=== PATIENT | male | born 1940 | race Caucasian/White ===

== ENCOUNTER 2019-03-23 18:15 | Observation (INO) ==
[2019-03-23 19:12] LABS: Urine Bilirubin Negative (NEGATIVE); Urine Blood Negative /ul (NEGATIVE); Urine Ketone Negative (NEGATIVE); Urine Nitrite Negative (NEGATIVE); Urine Protein Negative (NEGATIVE); Urine Specific Gravity 1.015 SP.GR. (1.005-1.030); Urine Urobilinogen Normal (NORMAL)
[2019-03-23 19:19] LABS: Hematocrit 42.2 % (42.0-52.0); Hemoglobin 14.2 gm/dL (13.5-18.0); Mean Cell Volume 91.9 fl (78-100); Mean Corpuscular Hemoglobin 30.9 pg (27-31); Mean Corpuscular Hgb Conc 33.6 g/dl (32-36); Mean Platelet Volume 9.8 fl (8-11.3); Neutrophil # 4.8 K/mm3 (1.3-6.0); Neutrophil % 64.7 % (42-75.0); Platelet Count 187 K/mm3 (150-450); Red Blood Count 4.59 M/mm3 (4.7-6.0); White Blood Count 7.4 K/mm3 (4.0-10.5)
[2019-03-23 19:23] LABS: Urine Appearance Clear (CLEAR); Urine Bacteria 1+; Urine Color Yellow; Urine RBC None Seen /hpf (0-5)
[2019-03-23 19:33] LABS: Cocaine Ur Negative (NEGATIVE); Urine Barbiturate Negative (NEGATIVE); Urine Benzodiazepines Negative (NEGATIVE); Urine Opiates Negative (NEGATIVE); Urine PCP Negative (NEGATIVE); Urine THC Negative (NEGATIVE)
[2019-03-23 19:45] LABS: ALT 16 U/L (19-67); AST 15 U/L (0-48); Albumin * 3.7 gm/dl (3.4-5.0); Alkaline Phosphatase * 86 U/L (50-170); Anion Gap 7.1 mmol/L (6.8-13.8); BUN/Creatinine Ratio 15.7 (9.0-21.6); Bilirubin, Total 0.4 mg/dL (0.0-1.1); Blood Urea Nitrogen 19 mg/dL (6-23); Calcium * 9.1 mg/dL (7.9-10.9); Carbon Dioxide 31.9 mmol/L (24-32.6); Chloride 103 mmol/L (97-106); Glucose * 240 mg/dL (70-110); Sodium 138 mmol/L (132-142); Total Protein 7.2 gm/dL (6.2-8.2)
[2019-03-23] MEDS ORDERED: LORazepam 2 MG/ML DISP.SYRIN IV ONE (20:29)
[2019-03-23] MEDS ORDERED: cefTRIAXone SODIUM 1,000 MG/100 ML BAG IV ONE (20:33)
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
[2019-03-24 14:40] VITALS: BP 141/75
== END 2019-03-24 15:08 | disposition home health service (06) ==
LOC: ER 18:15 → MS 18:15
PROVIDERS: ADMIT Family Medicine; ATTEND Family Medicine
DX: F03.91 Unspecified dementia, unspecified severity, with behavioral disturbance; G93.40 Encephalopathy, unspecified; N39.0 Urinary tract infection, site not specified
CPT/HCPCS: 36415; 70450; 71020; 71046; 80053; 80307; 80320; 81001; 83605; 85025; 87040; 87086; 93005; 96365; 96375; 97161; 99285; G0378; G0481

== ENCOUNTER 2020-09-27 17:11 | Inpatient (IN) ==
[2020-09-27] MEDS ORDERED: MORPHINE SULFATE 2 MG/ML DISP.SYRIN IV ONE ×2 (18:03→19:49)
[2020-09-27] MEDS ORDERED: cefTRIAXone SODIUM 1,000 MG/100 ML BAG IV ONE (18:24)
[2020-09-27] MEDS ORDERED: ACETAMINOPHEN 1,000 MG/100 ML BTL IV ONE (18:24)
[2020-09-27 18:36] LABS: Hematocrit 42.1 % (42.0-52.0); Hemoglobin 13.5 gm/dL (13.5-18.0); Mean Cell Volume 90.7 fl (78-100); Mean Corpuscular Hemoglobin 29.1 pg (27-31); Mean Corpuscular Hgb Conc 32.1 g/dl (32-36); Mean Platelet Volume 9.2 fl (8-11.3); Neutrophil # 6.2 K/mm3 (1.3-6.0); Neutrophil % 70.2 % (42-75.0); Platelet Count 231 K/mm3 (150-450); Red Blood Count 4.64 M/mm3 (4.7-6.0); Red Cell Distribution Width 13.1 % (11.5-14.0); White Blood Count 8.9 K/mm3 (4.0-10.5)
--- NOTE | 2020-09-27 18:41 | ERNOTE ---
Lower Extremity HPI - Narrative Date of Service: 09/27/20 - General Lower Extremities Pain: 1st toe: left Time Seen by Provider: 09/27/20 17:57 Source: patient Exam Limitations: no limitations - Immun/Allergies/Home Medications Immunizations: IMMUNIZATION HX Immunizations Up to Date Yes History of Influenza Vaccine Yes Hx Pneumococcal Vaccination No Allergies/Adverse Reactions: Allergies Allergy/AdvReac Type Severity Reaction Status Date / Time No Known Allergies Allergy Verified 07/05/20 08:55 Home Medications: HOME MEDICATIONS Amox Tr/Potassium Clavulanate [Augmentin 875-125 Tablet] 875 mg PO Q12H #20 tab 09/22/20 [Last Taken Unknown] - History of Present Illness Narrative: Patient presents to the ED for toe pain. This is a patient that I saw on the with a red toe. He needed to get going at that time because of his dog but did stay for labs/x-ray. He is living in a hotel now in [place] (had [facility] He subsequently went to [facility] in [place] on 09/24 and 09/26. Had [place] and left AMA, not willing to be admitted. Presents with ongoing toe pain. There is now a black area on the toe but this is also noted in the records from [place]. It does not sound like he had started the ABx that I prescribed him when I saw him here on the . Occurred: other - over a week ago Location of Incident: other - no injury noted Method of Injury: Reports: no apparent injury Loss of Consciousness: Reports: no loss of consciousness Modifying Factors - (Improves): Reports: other - nothing Modifying Factors - (Worsens): Reports: other - movement, walking Associated Symptoms: Denies: unable to bear weight Other Injuries: Reports: none Subsequent Symptoms: Denies: numbness, motor loss Prior Treament: Reports: recently seen, treated by physician Review of Systems - Review of Systems Constitutional: Absent: fever Respiratory: Absent: shortness of breath Cardiology: Absent: chest pain Gastrointestinal/Abdominal: Absent: abdominal pain Musculoskeletal: Present: See HPI Skin: Present: See HPI Neurological: Absent: weakness All Other Systems: All systems neg except as marked Medical History (Last Reviewed 09/27/20 @ 18:39 by Dre Hernandez MD) 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 type 2, controlled Surgical History: Surgical History (Last Reviewed 09/27/20 @ 18:39 by Dre Hernandez MD) H/O cervical spine surgery Family History: Family History (Last Reviewed 09/27/20 @ 18:39 by Dre Hernandez MD) Mother Father Social History: (Last Reviewed 09/27/20 @ 18:39 by Dre Hernandez MD) Social History: usp: No Highest level of school completed/degree received: high school graduate Service: No Tobacco: Smoking Status: Former smoker Alcohol: alcohol intake: never Substance Use: substance use type: does not use Dietary Habits: caffeine: Yes Physical Exam - Physical Exam General Appearance: Present: alert, no apparent distress Head Exam: Present: normal inspection, no evidence of injury Eye Exam: Normal inspection: bilateral, PERRL: bilateral Ears, Nose, Throat: Present: normal ENT inspection Neck: Present: normal inspection Respiratory: Present: no respiratory distress, normal breath sounds, no accessory muscle use, lungs clear Cardiovascular/Chest: Present: regular rate, rhythm, normal peripheral pulses Gastrointestinal/Abdominal: Present: nontender Back Exam: Present: normal range of motion Extremity Exam: Present: other - There is redness left great toe with necrotic area. The redness extends on the the foot. No subQ air noted. No clear evidence of nec fasc but necrotic area on toe noted. Neurological Exam: Present: alert, no motor/sensory deficits Skin Exam: Present: normal color, warm/dry, other - see extremity exam. Necrotic/black area on toe. Progress - Results and Orders Patient's Lab Results:: I have reviewed the patient's lab results. - Vital Signs Patient's Vital Signs:: I have reviewed the patient's vital signs. Vital Signs: Vital Signs 09/27/20 17:15 Temperature 36.8 C Pulse Rate 98 Respiratory Rate 18 Blood Pressure 144/114 H O2 Sat by Pulse Oximetry 99 - Progress/Reassessment Chief Complaint: Foot Injury/Pain Progress Note-Subjective: 09/27/20 18:53 I had spoken to Jorje Dhillon, plan was to admit the patient for medical eval and O rthopedics eval. When I discussed this with the patient he was not agreeable to that plan. Just like at [facility] he refused admission due to his dog and no one to care for it. he clearly understands risks of /disability but will not be admitted. I spent over 30 minutes with the patient trying to talk him into being admitted or find alternative options, he was not agreeable to this. He refuses my help and will sign out AMA, I cannot change his mind. I will try to get him in to see Ortho this week and hopefully he can find alternative arrangements for his dog so he can get the necessary and recommended treatment. 09/27/20 19:10 Patient thought he could find someone to watch his dog so he could be admitted but he would need to leave to do that. He understands that he is leaving AMA. 09/27/20 19:29 Nursing was kind enough to find a place for dog to be cared for. Ortho Jan's with images of toe, recommend admission. D/W Dr Vaughn who will admit the patient. Patient now agreeable. Departure Clinical Impression: Cellulitis, Failure of outpatient treatment, Necrosis of toe, Diabetes - Departure Disposition: Still a patient Condition: Fair Additional Instructions: You are leaving against medical advice. Please reconsider, you risk and /or disability. See Orthopedics this week, call Tuesday for an appointment time. Return if you change your mind about admission or if your condition worsens or changes in any way. Continue your antibiotics. Referrals: Jorje Dhillon, PAC [[facility]] -
[2020-09-27] MEDS ORDERED: NORMAL SALINE 1,000 ML IV ONE (18:42)
[2020-09-27 18:55] LABS: Anion Gap 13.9 mmol/L (6.8-13.8); Calcium * 8.4 mg/dL (7.9-10.9); Carbon Dioxide 25.1 mmol/L (24-32.6); Estimated Creat Clear 43.3
[2020-09-27 18:57] LABS: CRP 17.8 mg/dL (0.0-0.9)
[2020-09-27 19:58] LABS: Hemoglobin A1C 13.6 % (3.80-5.60)
--- NOTE | 2020-09-27 22:08 | HP ---
Chief Complaint - Chief Complaint Date of Service: 09/27/20 Time of Service: 22:07 Chief Complaint: diabetic ulcer, uncontrolled diabetes, concern for osteomyelitis History of Present Illness: 79-year-old male with history of uncontrolled type 2 diabetes presented to the ER for the third time in roughly a week for left toe pain and underlying cellulitis. Patient seen both here at [facility] previously as well as [place] for the same issue. Patient was prescribed antibiotics for a cellulitis infection but did not pick them up. Patient has little care for his overall health though is very pleasant to speak with. According to the ER doctor who previously saw him, his cellulitic infection is worse and he also developed what could be a black eschar/necrotic tissue over the lateral aspect of his left great toe. This is a previously. His white count in the ER was unremarkable but he did have an elevated ESR at 97 which is concerning for osteomyelitis. Patient was given a dose of Rocephin. He had an elevated hemoglobin A1c at 13.6 with a glucose of 411 in the ER. His lactic acid was normal. His CRP was elevated at 17.8. No repeat x-rays ordered at this time as he had one done 5 days previously which showed soft tissue swelling of the great toe without acute osseous abnormality. He was admitted to the floor for IV antibiotics and Ortho consult. On examination his toe does not look necrotic as there is minimal tissue breakdown but there is definitely tissue change. It could be an eschar or could be an underlying large hematoma. Again he is are concerning for osteomyelitis though and so patient will need an MRI on Tuesday. Stop the Rocephin and started him on vancomycin and Zosyn. No blood cultures were drawn in the ER but patient does not have any systemic signs of infection. His vital signs been stable and has been afebrile. Patient will be treated as he was able to find a Medicare for his dog while he is here. 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 type 2, controlled Surgical History: Surgical History (Last Reviewed 09/27/20 @ 21:58 by Nichelle Andino RN) H/O cervical spine surgery Family History: Family History (Last Reviewed 09/27/20 @ 21:58 by Nichelle Andino RN) Mother Father Social History: (Last Updated 09/27/20 @ 21:59 by Nichelle Andino RN) Social History: adopted: No foster care: No group home: No Marital status: / lives independently: Yes current occupational status: retired Highest level of school completed/degree received: high school graduate Sexually Active: No Service: No Tobacco: Smoking Status: Former smoker Alcohol: alcohol intake: former Substance Use: substance use type: does not use Dietary Habits: caffeine: Yes Review Of Systems (GEN) - Review of Systems Generalized/Overall Review: Absent: Weakness, Chills EENTM: Present: No Symptoms Reported Respiratory: Present: No Symptoms Reported Cardiac: Present: No Symptoms Reported Abdominal: Present: No Symptoms Reported Genitourinary: Present: Polyuria. Absent: Burning, Itching Musculoskeletal: Present: Other - Left great toe pain Neurological: Present: No Symptoms Reported Skin: Present: No Symptoms Reported Endocrine: Present: Increased Thirst Immunizations: IMMUNIZATION HX Immunizations Up to Date Yes History of Influenza Vaccine Yes Hx Pneumococcal Vaccination No Allergies/Adverse Reactions: Allergies Allergy/AdvReac Type Severity Reaction Status Date / Time No Known Allergies Allergy Verified 07/05/20 08:55 Home Medications: HOME MEDICATIONS Amox Tr/Potassium Clavulanate [Augmentin 875-125 Tablet] 875 mg PO Q12H #20 tab 09/22/20 [Last Taken Unknown] Exam - Exam Vital Signs: Vital Signs - Last Taken Temp 35.8 C L 09/27/20 21:34 Pulse 91 09/27/20 21:34 Resp 20 09/27/20 21:34 BP 135/75 09/27/20 21:34 Pulse Ox 97 09/27/20 21:34 Constitutional: Present: Alert, Oriented x3, Cooperative, Acute distress - Left great toe pain with underlying cellulitic infection, Elderly ENT Exam: Present: hearing grossly normal Eye Exam: bilateral eye: normal inspection, EOMI Neck: Present: non-tender, supple Respiratory: Present: lungs clear, normal breath sounds Cardiovascular/Chest: Present: regular rate, rhythm, no murmur Abdomen: Present: soft, nontender, nondistended Extremity: Present: other - Left great toe tissue change (eschar worse hematoma) with surrounding cellulitis tracking up both plantar and dorsal aspect of foot just below his ankle. Area is warm to touch Neurologic: Present: alert, normal mood/affect, oriented x 3 Appearance: Present: disheveled, impaired insight Eye contact: Present: cooperative, good eye contact, other - Very pleasant this evening Thoughts: Present: normal thought pattern, normal mood /affect Diagnostic Studies: Abnormal Lab Results 09/27/20 09/27/20 09/27/20 Range/Units 18:25 18:25 18:26 RBC 4.64 L (4.7-6.0) M/mm3 Immature Gran % (Auto) 0.60 H (0.001-0.429) % Immature Gran # (Auto) 0.05 H (0.000-0.0310) K/mm3 Lymphocytes % 18.9 L (20-51) % Monocytes % 9.1 H (0.0-9) % Neutrophils # 6.2 H (1.3-6.0) K/mm3 ESR 97 H (0-10) mm/hr Anion Gap (6.8-13.8) mmol/L Est GFR (Non-Af Amer) (60-130) mL/min Random Glucose (70-110) mg/dL Hemoglobin A1c 13.6 H (3.80-5.60) % C-Reactive Prot, Quant (0.0-0.9) mg/dL 09/27/20 Range/Units 18:26 RBC (4.7-6.0) M/mm3 Immature Gran % (Auto) (0.001-0.429) % Immature Gran # (Auto) (0.000-0.0310) K/mm3 Lymphocytes % (20-51) % Monocytes % (0.0-9) % Neutrophils # (1.3-6.0) K/mm3 ESR (0-10) mm/hr Anion Gap 13.9 H (6.8-13.8) mmol/L Est GFR (Non-Af Amer) 53 L (60-130) mL/min Random Glucose 411 H (70-110) mg/dL Hemoglobin A1c (3.80-5.60) % C-Reactive Prot, Quant 17.8 H (0.0-0.9) mg/dL Laboratory Results WBC 8.9 K/mm3 (4.0-10.5) 09/27/20 18:26 RBC 4.64 M/mm3 (4.7-6.0) L 09/27/20 18:26 Hgb 13.5 gm/dL (13.5-18.0) 09/27/20 18: Hct 42.1 % (42.0-52.0) 09/27/20 18: MCV 90.7 fl (78-100) 09/27/20 18: MCH 29.1 pg (27-31) 09/27/20 18: MCHC 32.1 g/dl (32-36) 09/27/20 18: RDW 13.1 % (11.5-14.0) 09/27/20 18: Plt Count 231 K/mm3 (150-450) 09/27/20 18: MPV 9.2 fl (8-11.3) 09/27/20 18: Immature Gran % (Auto) 0.60 % (0.001-0.429) H 09/27/20 18: Immature Gran # (Auto) 0.05 K/mm3 (0.000-0.0310) H 09/27/20 18: Neutrophils % 70.2 % (42-75.0) 09/27/20 18: Lymphocytes % 18.9 % (20-51) L 09/27/20 18: Monocytes % 9.1 % (0.0-9) H 09/27/20 18: Eosinophils % 0.9 % (0.0-3.0) 09/27/20 18: Basophils % 0.3 % (0.0-1.0) 09/27/20 18: Nucleated RBC % 0.0 k/mm3 (0-1) 09/27/20 18: Neutrophils # 6.2 K/mm3 (1.3-6.0) H 09/27/20 18: Lymphocytes # 1.68 k/mm3 (1.5-3.5) 09/27/20 18: Monocytes # 0.8 k/mm3 (0.0-1.0) 09/27/20 18: Eosinophils # 0.1 k/mm3 (0.0-0.7) 09/27/20 18: Absolute Basophils 0.0 k/mm3 (0.0-0.1) 09/27/20 18: ESR 97 mm/hr (0-10) H 09/27/20 18:25 Sodium 132 mmol/L (132-142) 09/27/20 18:26 Plasma Sodium 137 mmol/L (130-142) 09/27/20 18:26 Potassium 4.0 mmol/L (3.4-4.6) 09/27/20 18:26 Chloride 97 mmol/L (97-106) 09/27/20 18:26 Carbon Dioxide 25.1 mmol/L (24-32.6) 09/27/20 18:26 Anion Gap 13.9 mmol/L (6.8-13.8) H 09/27/20 18:26 BUN 18 mg/dL (6-23) 09/27/20 18:26 Creatinine 1.38 mg/dL (0.4-1.4) 09/27/20 18:26 Est GFR (Non-Af Amer) 53 mL/min (60-130) L 09/27/20 18:26 BUN/Creatinine Ratio 13.0 (9.0-21.6) 09/27/20 18:26 Random Glucose 411 mg/dL (70-110) H 09/27/20 18:26 Mean Blood Glucose 344 mg/dL 09/27/20 18:25 Hemoglobin A1c 13.6 % (3.80-5.60) H 09/27/20 18:25 Lactic Acid, Venous 1.8 mmol/L (0.4-2.0) 09/27/20 18:26 Calcium 8.4 mg/dL (7.9-10.9) 09/27/20 18:26 C-Reactive Prot, Quant 17.8 mg/dL (0.0-0.9) H 09/27/20 18:26 SARS-CoV-2 (PCR) Not detected (NotDetected) 09/27/20 19:40 Assessment/Plan - Narrative Narrative: Patient admitted for IV antibiotics. Patient will be here for a few days while we evaluate his toe. Patient would need an MRI of his left lower extremity to rule out osteomyelitis. Ortho has been consulted, will comanage with them. Patient was started on vancomycin and Zosyn. Will check Vanco trough an hour prior to fourth dose. We will need to get his diabetes under control prior to any operation if he were to have 1. We will start on a moderate sliding scale and check sugars before meals at bedtime. Consistent carbohydrate diet ordered. We will use SCDs for DVT prophylaxis as patient may need surgery. Will await for evaluation but patient will need MRI prior to any decision be made in regards to this. Patient is very pleasant but states that he is not excited about life and wanted to stand to go he wants to go. He is not suicidal by any means but is just sad and misses his who recently. We will consider antidepression medication and discussed this with him tomorrow. His vital signs are stable otherwise he is afebrile. We will work on getting fairly tight control of his diabetes. Patient is noncompliant which we discussed again this was back to him not being cellulitis and does not really want to do anything for his chronic comorbidities. This makes treating his infection difficult as he cannot stay here for full 14 days of IV antibiotics and if he were to have surgery I doubt he would have good follow-up care due to noncompliance and this likely will result in return infection and other complications. We discussed this in detail with the patient during his stay. Nurse will call questions or concerns. 1 hour time spent with patient, reviewing his records from the ER previous days, developing treatment plan, and dictating his note. - Assessment/Plan (1) Cellulitis, toe Problem: Acute (2) Necrosis of toe Problem: Suspected (3) Uncontrolled diabetes mellitus Problem: Acute
[2020-09-27] MEDS ORDERED: VANCOMYCIN HCL 1 GM in DEXTROSE 5 % IN WATER 250 ML IV SCH ×2 (22:15)
[2020-09-27] MEDS ORDERED: INSULIN LISPRO 100 UNITS/ML VIAL SC ONE (22:15)
[2020-09-27] MEDS: MORPHINE SULFATE 4 MG/ML SYRG IV PRN (22:50)
[2020-09-28] MEDS: PIPERACILLIN SODIUM/TAZOBACTAM 3.375 GM in DEXTROSE 5 % IN WATER 100 ML IV SCH ×6 (01:05→16:18)
[2020-09-28 07:40] LABS: Hematocrit 40.7 % (42.0-52.0); Mean Cell Volume 91.1 fl (78-100); Mean Corpuscular Hemoglobin 29.1 pg (27-31); Mean Corpuscular Hgb Conc 31.9 g/dl (32-36); Mean Platelet Volume 8.8 fl (8-11.3); Neutrophil % 64.2 % (42-75.0); Platelet Count 207 K/mm3 (150-450); Red Blood Count 4.47 M/mm3 (4.7-6.0); Red Cell Distribution Width 13.1 % (11.5-14.0); White Blood Count 7.8 K/mm3 (4.0-10.5)
[2020-09-28] MEDS: INSULIN LISPRO 100 UNITS/ML VIAL SC SCH ×4 (07:42→20:57)
[2020-09-28 07:57] LABS: Albumin * 2.8 gm/dl (3.4-5.0); Anion Gap 13.4 mmol/L (6.8-13.8); BUN/Creatinine Ratio 14.2 (9.0-21.6); Bilirubin, Total 0.5 mg/dL (0.0-1.1); Ca. Corrected For Albumin 8.9 mg/dL (8.4-10.2); Calcium * 8.3 mg/dL (7.9-10.9); Potassium 4.4 mmol/L (3.4-4.6); Total Protein 6.5 gm/dL (6.2-8.2)
[2020-09-28] MEDS: MORPHINE SULFATE 4 MG/ML SYRG IV PRN ×3 (08:33→19:51)
--- NOTE | 2020-09-28 11:14 | CONS ---
- Reason for consultation (1) Cellulitis, toe Date of Service: 09/28/20 HPI - General Date of Service: 09/28/20 Narrative: Mr. Hadley is an 79-year-old gentleman who was presented to emergency department a couple times over the last week. He apparently is also been in [facility]'s emergency department. He reports he has been having pain and swelling in his right foot that is progressively worsened. Dr. Hernandez had treated him as an outpatient for cellulitis. At this time he was concern for necrosis of the toe. Marcos reports he has not been compliant with his diabetes. He does like to eat a lot of sweets and drink a a lot of pop. His blood sugars have been running in the 600s apparently. He is currently living in a hotel in the [facility]. His in 2019 as well as siblings have . 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 Marcos reports to me that he just wants to but he does not want to commit suicide. He reports he has not drank alcohol in 7 years. Source: patient, other - Dr. Hernandez - History of Present Illness Timing/Duration: 1 week, getting worse Allergies/Adverse Reactions: Allergies No Known Allergies Allergy (Verified 07/05/20 08:55) Home Medications: Home Medications Medication Instructions Recorded Last Taken Amox Tr/Potassium Clavulanate 875 mg PO Q12H #20 tab 09/22/20 Unknown [Augmentin 875-125 Tablet] Medications - Medications Current Medications: Current Medications Piperacillin Sod/Tazobactam (Sod 3.375 gm/ Dextrose/Water) 100 mls @ 25 mls/hr IV Q8H [facility]; Protocol Stop: 10/27/20 22:16 Last Admin: 09/28/20 07:41 Dose: 25 mls/hr Documented by: Insulin Human Lispro (Insulin Lispro 100 Units/Ml Vial) 0 units SC [facility]; Protocol Stop: 10/28/20 07:01 Last Admin: 09/28/20 07:42 Dose: 8 units Documented by: Morphine Sulfate (Morphine Sulfate 4 Mg/Ml Syrg) 4 mg IV Q4H PRN PRN Reason: Pain Stop: 10/27/20 22:31 Last Admin: 09/28/20 08:33 Dose: 4 mg Documented by: Physical Examination - Exam Vital Signs: Vital Signs - Last Taken Temp 36.6 C 09/28/20 09:00 Pulse 91 09/28/20 09:00 Resp 18 09/28/20 09:00 BP 140/77 09/28/20 09:00 Pulse Ox 97 09/28/20 09:00 O2 Oxygen Delivery Method Room Air Comprehensive Narative: 09/28/20 11:07 Areas of pleasant 79-year-old gentleman. At this time he is in no distress. Plain film x-rays reviewed showing no obvious evidence of osteomyelitis. His left foot is warm to the touch. Posterior tibial pulse intact. He has local discomfort around the great toe with local erythema. He has a black area that appears to be a blood blister and not true necrosis. He has no open sores at this time. He reports sensation intact to light touch in his other foot. He is able to plantarflex and dorsiflex the both ankles without pain. He does not have an elevated white count. His sed rate is 97 CRP 2.8. 09/28/20 11:09 Constitutional: Present: Alert, Oriented x3, Cooperative, No distress - Results and Findings: Lab/Microbiology results last 24 hrs: Abnormal/Pending Laboratory Last 24 HRS 09/28/20 09/28/20 09/27/20 07:22 07:22 18:26 RBC 4.47 L Hgb 13.0 L Hct 40.7 L MCHC 31.9 L Immature Gran % (Auto) Immature Gran # (Auto) Lymphocytes % Monocytes % 10.4 H Neutrophils # ESR Anion Gap 13.9 H Est GFR (Non-Af Amer) 53 L Random Glucose 135 H D 411 H Hemoglobin A1c C-Reactive Prot, Quant 17.8 H Albumin 2.8 L 09/27/20 09/27/20 09/27/20 18:26 18:25 18:25 RBC 4.64 L Hgb Hct MCHC Immature Gran % (Auto) 0.60 H Immature Gran # (Auto) 0.05 H Lymphocytes % 18.9 L Monocytes % 9.1 H Neutrophils # 6.2 H ESR 97 H Anion Gap Est GFR (Non-Af Amer) Random Glucose Hemoglobin A1c 13.6 H C-Reactive Prot, Quant Albumin - Assessments/Findings (1) Cellulitis, toe Diagnosis(s): Discussed with Marcos the importance of getting his blood sugars under control. He currently is being treated for cellulitis with IV antibiotics and he does have a large blood blister on his great toe. At this time I do not see any strong indication to amputate the toe. If the toe involves tissue necrosis I discussed with him he may need to have this done. He voiced understanding. Advised in order to heal a surgical wound his blood sugars would need to be controlled. This was discussed with his admitting physician Dr. Vaughn this morning. He is going to obtain an MRI to further evaluate for potential osteomyelitis. Problem: Acute (2) Uncontrolled diabetes mellitus Problem: Acute
[2020-09-28] MEDS: VANCOMYCIN/WATER FOR INJ (PEG) 1.75 GM/350 ML BAG IV SCH (11:31)
--- NOTE | 2020-09-28 14:20 | PN ---
Subjective - Date and Time Seen Date: 09/28/20 Time: 11:00 Subjective Narrative: He feels well, already shortness regression of the cellulitis in his left foot. Agree with Jorje from Ortho as this may be just a blood blister on his toe as there are no tissue changes with the blackness. Due to elevated ESR though, plan for MRI tomorrow. Blood sugars much better controlled and his vital signs are stable. He is tolerating his antibiotic treatment well. Objective - Review of Systems Generalized/Overall Review: Reports: No Symptoms Reported EENTM: Reports: No Symptoms Reported Respiratory: Reports: No Symptoms Reported Cardiac: Reports: No Symptoms Reported Abdominal: Reports: No Symptoms Reported Genitourinary Symptoms: Reports: No Symptoms Reported Musculoskeletal Complaints: Reports: Other - Left toe pain Neurological: Reports: No Symptoms Reported Skin: Reports: No Symptoms Reported Endocrine: Reports: No Symptoms Reported - Vitals Vitals: Last Vital Signs Temp 37.2 C 09/28/20 11:00 Pulse 90 09/28/20 11:00 Resp 18 09/28/20 11:00 BP 109/59 09/28/20 11:00 Pulse Ox 95 09/28/20 11:00 - Abnormal Lab Findings Abnormal Lab Findings: Abnormal Lab Results 09/27/20 09/27/20 09/27/20 Range/Units 18:25 18:25 18:26 RBC 4.64 L (4.7-6.0) M/mm3 Hgb (13.5-18.0) gm/dL Hct (42.0-52.0) % MCHC (32-36) g/dl Immature Gran % (Auto) 0.60 H (0.001-0.429) % Immature Gran # (Auto) 0.05 H (0.000-0.0310) K/mm3 Lymphocytes % 18.9 L (20-51) % Monocytes % 9.1 H (0.0-9) % Neutrophils # 6.2 H (1.3-6.0) K/mm3 ESR 97 H (0-10) mm/hr Anion Gap (6.8-13.8) mmol/L Est GFR (Non-Af Amer) (60-130) mL/min Random Glucose (70-110) mg/dL Hemoglobin A1c 13.6 H (3.80-5.60) % C-Reactive Prot, Quant (0.0-0.9) mg/dL Albumin (3.4-5.0) gm/dl 09/27/20 09/28/20 09/28/20 Range/Units 18:26 07:22 07:22 RBC 4.47 L (4.7-6.0) M/mm3 Hgb 13.0 L (13.5-18.0) gm/dL Hct 40.7 L (42.0-52.0) % MCHC 31.9 L (32-36) g/dl Immature Gran % (Auto) (0.001-0.429) % Immature Gran # (Auto) (0.000-0.0310) K/mm3 Lymphocytes % (20-51) % Monocytes % 10.4 H (0.0-9) % Neutrophils # (1.3-6.0) K/mm3 ESR (0-10) mm/hr Anion Gap 13.9 H (6.8-13.8) mmol/L Est GFR (Non-Af Amer) 53 L (60-130) mL/min Random Glucose 411 H 135 H D (70-110) mg/dL Hemoglobin A1c (3.80-5.60) % C-Reactive Prot, Quant 17.8 H (0.0-0.9) mg/dL Albumin 2.8 L (3.4-5.0) gm/dl - Exam Constitutional: Present: Alert, Oriented x3, Cooperative, Elderly ENT Exam: Present: hearing grossly normal Respiratory: Present: lungs clear, normal breath sounds Cardiovascular/Chest: Present: regular rate, rhythm, no murmur Abdomen: Present: soft, nontender, nondistended Extremity: Present: other - Large black lesion lateral great toe on the foot with surrounding cellulitis Appearance: Present: appropriate appearance, impaired insight Eye contact: Present: cooperative, good eye contact Thoughts: Present: normal mood /affect Assessment/Plan Plan Narrative: Repeat blood work this morning was unchanged. No white count. Kidney function slightly improved, appropriate for current vancomycin dose. Continue IV antibiotics. We will get MRI of left lower extremity without contrast in the morning. Will determine treatment plan with Ortho once the MRI comes back. Patient unsure if he wants to have it operated on or if he wants to try just antibiotic treatment first. Explained to him that if it was osteomyelitis that he likely will be able to clear the infection with antibiotics alone but we can discuss it again once we have the MRI results. Otherwise continue current treatment plan, nurse to call questions or concerns. - Problems/Diagnosis (1) Cellulitis, toe Problem: Acute (2) Necrosis of toe Problem: Suspected (3) Uncontrolled diabetes mellitus Problem: Acute
[2020-09-29] MEDS: PIPERACILLIN SODIUM/TAZOBACTAM 3.375 GM in DEXTROSE 5 % IN WATER 100 ML IV SCH ×8 (00:18→23:32)
[2020-09-29] MEDS: MORPHINE SULFATE 4 MG/ML SYRG IV PRN ×4 (02:53→19:47)
[2020-09-29] MEDS: INSULIN LISPRO 100 UNITS/ML VIAL SC SCH ×4 (07:05→20:29)
--- NOTE | 2020-09-29 11:38 | PN ---
Subjective - Date and Time Seen Date: 09/29/20 Time: 11:28 Subjective Narrative: Patient feels well and cellulitis is improving on IV antibiotics. Vital signs are stable. Blood sugars still elevated, switch him to a more aggressive sliding scale. He has minimal pain and overall has no concerns. MRI ordered for this morning to evaluate foot. Objective - Review of Systems Generalized/Overall Review: Reports: No Symptoms Reported EENTM: Reports: No Symptoms Reported Respiratory: Reports: No Symptoms Reported Cardiac: Reports: No Symptoms Reported Abdominal: Reports: No Symptoms Reported Genitourinary Symptoms: Reports: No Symptoms Reported Musculoskeletal Complaints: Reports: Other - Left great toe pain, improving Skin: Reports: Other - Redness and warmth from left great toe with black lesion lateral aspect of toe Endocrine: Reports: No Symptoms Reported - Vitals Vitals: Last Vital Signs Temp 37.1 C 09/29/20 06:37 Pulse 88 09/29/20 06:37 Resp 14 09/29/20 06:37 BP 113/68 09/29/20 06:37 Pulse Ox 94 09/29/20 06:37 - Exam Constitutional: Present: Alert, Oriented x3, Elderly ENT Exam: Present: hearing grossly normal Respiratory: Present: lungs clear, normal breath sounds Cardiovascular/Chest: Present: regular rate, rhythm, no murmur. Absent: edema Abdomen: Present: soft, nontender, nondistended Skin Exam: Present: other - cellulitic infection from left great toe with large hematoma lateral aspect of toe Neurologic: Present: alert, normal mood/affect, oriented x 3 Appearance: Present: appropriate appearance, impaired insight Eye contact: Present: cooperative, good eye contact Thoughts: Present: normal thought pattern, normal mood /affect Assessment/Plan Plan Narrative: Doing well, continue IV abx. MRI ordered for this morning. Blood sugars much better then admission but still high. Best was 135 yesterday. Most in the upper 100s to low 200s. Increase sliding scale. Holding on starting metformin. Otherwise vitals are stable. Will determine tx plan once MRI results are back. Nurse to call with questions or concerns. - Problems/Diagnosis (1) Cellulitis, toe Problem: Acute (2) Necrosis of toe Problem: Suspected (3) Uncontrolled diabetes mellitus Problem: Acute
[2020-09-29] MEDS: VANCOMYCIN/WATER FOR INJ (PEG) 1.75 GM/350 ML BAG IV SCH (13:25)
[2020-09-30] MEDS: MORPHINE SULFATE 4 MG/ML SYRG IV PRN ×2 (06:34→10:38)
[2020-09-30] MEDS: INSULIN LISPRO 100 UNITS/ML VIAL SC SCH ×4 (07:29→20:21)
[2020-09-30] MEDS: PIPERACILLIN SODIUM/TAZOBACTAM 3.375 GM in DEXTROSE 5 % IN WATER 100 ML IV SCH ×4 (09:02→16:46)
--- NOTE | 2020-09-30 10:16 | PREOP NOTE ---
Preoperative Progress Note - Preoperative Changes Changes to Preop Condition?: No Changes
--- NOTE | 2020-09-30 10:46 | ANES ---
Anesthesia Pre Procedure Eval Vitals/Labs: Last Vital Signs Temp 36.8 C 09/30/20 10:00 Pulse 89 09/30/20 10:00 Resp 20 09/30/20 10:00 BP 111/64 09/30/20 10:00 Pulse Ox 98 09/30/20 10:00 Hemoglobin A1c 13.6 % (3.80-5.60) H 09/27/20 18:25 HOME MEDICATIONS Amox Tr/Potassium Clavulanate [Augmentin 875-125 Tablet] 875 mg PO Q12H #20 tab 09/22/20 [Last Taken Unknown] Allergies/Adverse Reactions: Allergies Allergy/AdvReac Type Severity Reaction Status Date / Time No Known Allergies Allergy Verified 07/05/20 08:55 - Planned Procedure Planned Procedure: Toe amputation Medication List Reviewed:: Yes Allergies Verified: Yes Medical History (Last Reviewed 09/30/20 @ 10:44 by Ben James CRNA) 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 type 2, controlled Surgical History (Last Reviewed 09/30/20 @ 10:44 by Ben James CRNA) H/O cervical spine surgery Family History (Last Reviewed 09/30/20 @ 10:44 by Ben James CRNA) Mother Father - Family Anesthesia History Family History:: no untoward family reactions to anesthesia, no familial bleeding tendencies, no family history of clotting disorders, no family history of premature - Airway/Neck/Teeth Within Normal Limits:: Yes Denture Type: Full upper, Full lower Mallampatti Score: 2 Thyromental (T-M) distance: > 6 cm Mandibulo Hyoid distance: > 3 cm - Respiratory Respiratory Physical: lungs clear Smoking Status: Former smoker Discussed smoking cessation including day of surgery: No Sleep Apnea currently treated: No Sleep Apnea by current assessment: No Discussed Risks/Treatment of BEATRIZ: No - Cardiovascular Tolerate Activity: Fair Heart Sounds: S1 & S2, Regular - Gastrointestinal NPO since: 0800 H2O - Anesthesia Assessment and Plan ASA Class: PS, III Anesthesia Type Plan: MAC
[2020-09-30] MEDS: VANCOMYCIN/WATER FOR INJ (PEG) 1.75 GM/350 ML BAG IV SCH (12:05)
[2020-09-30] MEDS ORDERED: PROPOFOL VIAL IV ONE (12:08)
[2020-09-30] MEDS ORDERED: ceFAZolin SODIUM 1 GM VIAL ONE (12:16)
[2020-09-30] MEDS ORDERED: BUPIVACAINE HCL 50 ML VIAL IJ ONE (12:16)
[2020-09-30] MEDS ORDERED: LIDOCAINE HCL 50 ML VIAL ONE (12:34)
[2020-09-30] MEDS ORDERED: RINGER'S SOLUTION,LACTATED 1,000 ML IV PRN (13:24)
[2020-09-30] MEDS ORDERED: ONDANSETRON HCL/PF 2 MG/ML VIAL IV PRN (13:34)
[2020-09-30] MEDS ORDERED: MAGNESIUM HYDROXIDE 30 ML UDC PO PRN (13:34)
[2020-09-30] MEDS ORDERED: MAG HYDROX/ALUMINUM HYD/SIMETH 30 ML UDC PO PRN (13:34)
--- NOTE | 2020-09-30 13:34 | OR ---
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 COMPLICATIONS: None. DRAINS: None. SPECIMENS: Toe. ESTIMATED BLOOD LOSS: Minimal. RETAINED IMPLANTS: None. Tourniquet: 9 minutes Esmarch band calf INDICATIONS FOR PROCEDURE: Mr. Hadley is an 79-year-old gentleman with diabetes which is uncontrolled who developed an ulceration and necrosis of his left great toe. He was started on IV antibiotics and had an MRI which was concerning for osteomyelitis. Due to the concern that this would likely not heal it was discussed the option of amputation. Nonsurgical treatments were also reviewed. He elected to proceed with surgery. The risks, benefits, and alternatives were discussed, and he wished to proceed. Consent was obtained. DESCRIPTION OF PROCEDURE: After time-out, a local anesthetic was placed. An Esmarch band was utilized to exsanguinate the extremity as well as for the tourniquet. He had most of his necrosis at the distal medial aspect of the great toe. He had minimal cellulitis or skin changes at the base. A plantar based flap was made with a full-thickness incision of the surrounding tissues. The toe was then disarticulated at the metatarsal phalangeal joint. The remaining tissues appeared to be healthy without any gross signs of infection. The wounds were then irrigated. Tourniquet was released and there is no ex cessive bleeding. There was good overall punctate bleeding now. The wound was then irrigated and closed with interrupted nylon. Additional local anesthetic was placed. Xeroform, 4 x 4 soft roll and Coban was applied. All sponge, needle and instrument counts were correct prior to closing the wounds.
[2020-09-30] MEDS ORDERED: LIDOCAINE HCL 50 ML VIAL IJ ONE (13:53)
--- NOTE | 2020-09-30 13:53 | ANES ---
Post Anesthesia Discharge - Transfer of Care Transfer of Care handoff given to nurse: Yes - Anesthesia Post Op Note Anesthesia Post Op Note: Care transferred to MS HERNANDEZ
--- NOTE | 2020-09-30 13:53 | ANES ---
Post Anesthesia Assessment - Vital Signs Vitals: Last Vital Signs Temp 36.4 C 09/30/20 13:43 Pulse 83 09/30/20 13:43 Resp 18 09/30/20 13:43 BP 113/63 09/30/20 13:43 Pulse Ox 100 09/30/20 13:43 Airway Patency: Normal - Mental Status Level Of Consciousness: Awake - Pain Level Pain Score: 0 - N/V Assessment Nausea/Vomiting Presence: None Dehydration:: No
[2020-09-30] MEDS: ceFAZolin SODIUM 1 GM in DEXTROSE 5 % IN WATER 100 ML IV SCH ×4 (16:19→20:56)
--- NOTE | 2020-09-30 18:10 | PN ---
Subjective - Date and Time Seen Date: 09/30/20 Time: 18:00 Subjective Narrative: Patient resting comfortably in bed following his operation which he had earlier today. MRI did confirm osteomyelitis of his first great toe on his left foot. He was taken back to the OR and Dr. Do performed a left great toe amputation at the metatarsophalangeal joint. No complications. Patient denies any pain at this time. His vital signs are stable and he feels well otherwise. Objective - Review of Systems Generalized/Overall Review: Reports: No Symptoms Reported EENTM: Reports: No Symptoms Reported Respiratory: Reports: No Symptoms Reported Cardiac: Reports: No Symptoms Reported Abdominal: Reports: No Symptoms Reported Genitourinary Symptoms: Reports: No Symptoms Reported Musculoskeletal Complaints: Reports: Other - No foot pain of left extremity Neurological: Reports: No Symptoms Reported Skin: Reports: No Symptoms Reported - Vitals Vitals: Last Vital Signs Temp 36.7 C 09/30/20 17:28 Pulse 79 09/30/20 17:28 Resp 18 09/30/20 17:28 BP 115/69 09/30/20 17:28 Pulse Ox 100 09/30/20 17:28 - Exam Constitutional: Present: Alert, Oriented x3, Cooperative, Elderly Respiratory: Present: lungs clear, normal breath sounds Cardiovascular/Chest: Present: regular rate, rhythm, no murmur Abdomen: Present: soft, nontender, nondistended Skin Exam: Present: normal color, warm/dry, other - Patient has bandage over left lower extremity that is clean dry and intact, unable to evaluate cellulitis Appearance: Present: appropriate appearance, appropriate insight Eye contact: Present: cooperative, good eye contact Thoughts: Present: normal thought pattern, normal mood /affect Assessment/Plan Plan Narrative: Patient with cellulitis and osteomyelitis of his left lower extremity. Patient was taken back to surgery today and had a left great toe amputation performed without complication. Bandage is intact and clean and dry at this time. Unable to evaluate cellulitis the patient is tolerating antibiotics without complication. Repeat CBC and CMP in the morning. Patient restarted on a consistent carbohydrate diet with aggressive sliding scale. We discussed the case management the morning options for getting him insulin in the outpatient setting and patient agrees to follow-up with me in my clinic once he is discharged from here. Pain currently is well controlled and he has no concerns. Vital signs are stable and he is afebrile. Sugars are still high but fluctuate from 130s to 300s. Again cannot start patient on long-acting insulin as he will not be able to afford it nor do I think he will use it appropriately and likely will be at risk of injury until further training can be provided. Patient also not a great mindset to care for himself at this time and I have my concerns on even starting him on short acting insulin. Again we will discuss this with the patient in the morning and also discussed this with case management in the morning. Otherwise patient stable and looks well. Nurses will call questions or concerns. - Problems/Diagnosis (1) Cellulitis, toe Problem: Acute (2) Necrosis of toe Problem: Resolved (3) Uncontrolled diabetes mellitus Problem: Acute
[2020-09-30] MEDS: HYDROcodone/ACETAMINOPHEN 1 EACH TABLET PO PRN (20:10)
[2020-09-30] MEDS: SENNOSIDES/DOCUSATE SODIUM 1 TAB TABLET PO SCH (20:11)
[2020-10-01] MEDS: HYDROcodone/ACETAMINOPHEN 1 EACH TABLET PO PRN ×4 (00:15→13:58)
[2020-10-01] MEDS: PIPERACILLIN SODIUM/TAZOBACTAM 3.375 GM in DEXTROSE 5 % IN WATER 100 ML IV SCH ×6 (00:16→16:37)
[2020-10-01] MEDS: MORPHINE SULFATE 4 MG/ML SYRG IV PRN ×2 (02:13→12:19)
[2020-10-01] MEDS: ceFAZolin SODIUM 1 GM in DEXTROSE 5 % IN WATER 100 ML IV SCH ×2 (02:46)
[2020-10-01] MEDS ORDERED: ceFAZolin SODIUM 1 GM VIAL IV PRN (06:00)
[2020-10-01 06:46] LABS: Hematocrit 40.2 % (42.0-52.0); Hemoglobin 12.7 gm/dL (13.5-18.0); Mean Corpuscular Hemoglobin 28.7 pg (27-31); Mean Corpuscular Hgb Conc 31.6 g/dl (32-36); Mean Platelet Volume 8.4 fl (8-11.3); Neutrophil # 4.8 K/mm3 (1.3-6.0); Neutrophil % 65.7 % (42-75.0); Platelet Count 209 K/mm3 (150-450); Red Blood Count 4.42 M/mm3 (4.7-6.0); White Blood Count 7.4 K/mm3 (4.0-10.5)
[2020-10-01 07:00] LABS: Anion Gap 11.7 mmol/L (6.8-13.8); BUN/Creatinine Ratio 8.9 (9.0-21.6); Calcium * 8.7 mg/dL (7.9-10.9); Estimated Creat Clear 53.4; Potassium 4.7 mmol/L (3.4-4.6)
[2020-10-01] MEDS: INSULIN LISPRO 100 UNITS/ML VIAL SC SCH ×4 (07:20→20:33)
[2020-10-01] MEDS: VANCOMYCIN/WATER FOR INJ (PEG) 1.75 GM/350 ML BAG IV SCH (10:01)
[2020-10-01] MEDS: glipiZIDE 5 MG TABLET PO SCH (16:36)
[2020-10-01] MEDS: metFORMIN HCL 500 MG TABLET PO SCH (16:40)
--- NOTE | 2020-10-01 17:08 | PN ---
Subjective - Date and Time Seen Date: 10/01/20 Time: 07:30 Subjective Narrative: Subjective: Reports some mild discomfort. Was able to walk in the room. Pain is well-controlled. Voiding without any complications. Tolerating by mouth intake. Denies any nausea or vomiting. Denies calf pain. Slept well. Physical exam: Alert and oriented to person, place and time Left lower extremity: Palpable dorsalis pedis pulse. Dressings dry and intact. Mild tenderness about the foot Assessment: Postop day 1 status post left great toe amputation. Plan: He can walk on his heel in a postop shoe. Keep the dressings on and intact and dry. I will see him back in approximately a week to week and a half. He needs to control his blood sugars in order to assist with healing. 24 hours of IV antibiotics. He can be discharged at any point from an orthopedic standpoint. Objective - Vitals Vitals: Last Vital Signs Temp 37.3 C 10/01/20 14:40 Pulse 75 10/01/20 14:40 Resp 18 10/01/20 14:40 BP 118/70 10/01/20 14:40 Pulse Ox 96 10/01/20 14:40 - Abnormal Lab Findings Abnormal Lab Findings: Abnormal Lab Results 10/01/20 10/01/20 Range/Units 06:43 06:43 RBC 4.42 L (4.7-6.0) M/mm3 Hgb 12.7 L (13.5-18.0) gm/dL Hct 40.2 L (42.0-52.0) % MCHC 31.6 L (32-36) g/dl Monocytes % 9.6 H (0.0-9) % Potassium 4.7 H (3.4-4.6) mmol/L BUN/Creatinine Ratio 8.9 L (9.0-21.6) Random Glucose 180 H D (70-110) mg/dL Assessment/Plan - Problems/Diagnosis (1) Cellulitis, toe Problem: Acute (2) Necrosis of toe Problem: Resolved
[2020-10-01] MEDS: HYDROcodone/ACETAMINOPHEN 1 EACH TABLET PO SCH ×2 (19:02→22:29)
[2020-10-01] MEDS: SENNOSIDES/DOCUSATE SODIUM 1 TAB TABLET PO SCH (20:33)
--- NOTE | 2020-10-01 22:05 | PN ---
Subjective - Date and Time Seen Date: 10/01/20 Time: 11:45 Subjective Narrative: He is currently working with therapy. States pain is pretty bad at the moment. He is unstable and unlikely will be ready for discharge tomorrow. His labs and vitals are stable and his dressing is clean/dry/intact. Sugars are improving. Objective - Review of Systems Generalized/Overall Review: Reports: No Symptoms Reported EENTM: Reports: No Symptoms Reported Respiratory: Reports: No Symptoms Reported Cardiac: Reports: No Symptoms Reported Abdominal: Reports: No Symptoms Reported. Denies: Constipation Genitourinary Symptoms: Reports: No Symptoms Reported Musculoskeletal Complaints: Reports: Other - foot pain - Vitals Vitals: Last Vital Signs Temp 37.5 C 10/01/20 19:28 Pulse 82 10/01/20 19:28 Resp 16 10/01/20 19:28 BP 137/72 10/01/20 19:28 Pulse Ox 97 10/01/20 19:28 - Abnormal Lab Findings Abnormal Lab Findings: Abnormal Lab Results 10/01/20 10/01/20 Range/Units 06:43 06:43 RBC 4.42 L (4.7-6.0) M/mm3 Hgb 12.7 L (13.5-18.0) gm/dL Hct 40.2 L (42.0-52.0) % MCHC 31.6 L (32-36) g/dl Monocytes % 9.6 H (0.0-9) % Potassium 4.7 H (3.4-4.6) mmol/L BUN/Creatinine Ratio 8.9 L (9.0-21.6) Random Glucose 180 H D (70-110) mg/dL - Exam Constitutional: Present: Alert, Oriented x3, Acute distress - foot pain, Elderly Respiratory: Present: lungs clear, normal breath sounds Abdomen: Present: soft, nontender Extremity: Present: other - left slope tender at ampuation site, dressing in place. Clean and dry Appearance: Present: appropriate appearance, impaired insight Eye contact: Present: cooperative, good eye contact Thoughts: Present: normal thought pattern, no apparent hallucination Assessment/Plan Plan Narrative: Patient is stable from a medical standpoint. His foot is clean and dry. Working PT now. Pain is high, will schedule pain medication every 4 hrs to help keep it under control. Will discontinue IV abx tomorrow. Start oral abx for an addition 3 days. Patient liekly needs assisted living vs SNF for short time but will likely not go as he will not leave his dog. Will discuss this with case management in the morning. Blood sugars are better and continue to improve. WIll start metformin and glipizide today. He would benefit from insulin but I do not think he is capable of administering it to himself once he leaves here. He will need to keep his sugars fairly well controlled though to aid in healing. Will discuss this with him and case management in the morning also. Otherwise his labs are stable and his vitals are stable. Nurse to call with questions or concerns. - Problems/Diagnosis (1) Cellulitis, toe Problem: Acute (2) Necrosis of toe Problem: Resolved (3) Uncontrolled diabetes mellitus Problem: Acute
[2020-10-02] MEDS: PIPERACILLIN SODIUM/TAZOBACTAM 3.375 GM in DEXTROSE 5 % IN WATER 100 ML IV SCH ×8 (00:11→23:55)
[2020-10-02] MEDS: HYDROcodone/ACETAMINOPHEN 1 EACH TABLET PO SCH ×6 (01:01→21:47)
[2020-10-02] MEDS ORDERED: MORPHINE SULFATE 4 MG/ML SYRG IV ONE (01:36)
[2020-10-02] MEDS: ACETAMINOPHEN 500 MG TABLET PO PRN ×2 (07:35→23:54)
[2020-10-02] MEDS: INSULIN LISPRO 100 UNITS/ML VIAL SC SCH ×4 (07:36→20:19)
[2020-10-02] MEDS: glipiZIDE 5 MG TABLET PO SCH (07:36)
[2020-10-02] MEDS: metFORMIN HCL 500 MG TABLET PO SCH ×3 (07:40→17:20)
[2020-10-02] MEDS: VANCOMYCIN/WATER FOR INJ (PEG) 1.75 GM/350 ML BAG IV SCH (10:37)
--- NOTE | 2020-10-02 12:41 | PN ---
Subjective - Date and Time Seen Date: 10/02/20 Time: 12:39 Subjective Narrative: Subjective: Pain is improved. Was able to walk in the room. Pain is well- controlled. Voiding without any complications. Tolerating by mouth intake. Denies any nausea or vomiting. Physical exam: Alert and oriented to person, place and time Left lower extremity: Palpable dorsalis pedis pulse. Dressings dry and intact. Mild tenderness about the foot Assessment: Postop day 2 status post left great toe amputation. Plan: He can walk on his heel in a postop shoe. Keep the dressings on and intact and dry. I will see him back in approximately a week. He needs to control his blood sugars in order to assist with healing. Gabapentin added for pain control. He can be discharged at any point from an orthopedic standpoint. Objective - Vitals Vitals: Last Vital Signs Temp 36.8 C 10/02/20 11:00 Pulse 70 10/02/20 11:00 Resp 18 10/02/20 11:00 BP 128/56 10/02/20 11:00 Pulse Ox 94 10/02/20 11:00 Assessment/Plan - Problems/Diagnosis (1) Cellulitis, toe Problem: Acute Qualifiers: Laterality: left Qualified Code(s): L03.032 - Cellulitis of left toe (2) Necrosis of toe Problem: Acute
[2020-10-02] MEDS: GABAPENTIN 100 MG CAPSULE PO SCH ×2 (13:56→20:17)
[2020-10-02] MEDS: SENNOSIDES/DOCUSATE SODIUM 1 TAB TABLET PO SCH (20:17)
--- NOTE | 2020-10-02 22:15 | PN ---
Subjective - Date and Time Seen Date: 10/02/20 Time: 12:30 Subjective Narrative: Patient pain much better controlled with scheduled meds. Had a bowel movement today. Vitals are stable. Blood sugars still high but much improved. Patient waiting for possible placement to SNF. Otherwise he looks and feels great Objective - Review of Systems Generalized/Overall Review: Reports: No Symptoms Reported EENTM: Reports: No Symptoms Reported Respiratory: Reports: No Symptoms Reported Cardiac: Reports: No Symptoms Reported Abdominal: Reports: No Symptoms Reported Genitourinary Symptoms: Reports: No Symptoms Reported Musculoskeletal Complaints: Reports: Other - foot pain, minimal today Skin: Reports: Other - LLE wrapped in clean and dry bandages. - Vitals Vitals: Last Vital Signs Temp 36.8 C 10/02/20 21:53 Pulse 93 10/02/20 21:53 Resp 12 10/02/20 21:53 BP 127/67 10/02/20 21:53 Pulse Ox 96 10/02/20 21:53 - Exam Constitutional: Present: Alert, Oriented x3, Elderly ENT Exam: Present: hearing grossly normal Respiratory: Present: lungs clear, normal breath sounds Cardiovascular/Chest: Present: regular rate, rhythm, no murmur Abdomen: Present: soft, nontender, nondistended Extremity: Present: leg pain - well controlled, minimal today. Absent: lower extremity edema Skin Exam: Present: other - dressing in place, clean dry and intact Appearance: Present: appropriate appearance, impaired insight Eye contact: Present: cooperative, good eye contact Thoughts: Present: normal thought pattern, normal mood /affect Assessment/Plan Plan Narrative: He is doing surprisingly well, pain much better controlled. Vitals are stable. Sugars improving but still need work. Possibly going to SNF tomorrow which will change treatment plan upon discharge. He will not be able to administer insulin on his own and his sugars will be poorly controlled and his healing will likely be affected if he goes home on his own. If he is able to go to a SNF then can start a long acting insulin with sliding scale. Maybe able to get home health to visit him in his hotel which may make it better with insulin at least until his foot heals. Otherwise he will go home with only oral medications. Started him on metformin and glipizide yesterday. WIll stop IV abx in the morning and start orals for a couple more days to make sure the cellulitis has resolved. Continue with [facility] q 4 hrs scheduled. Will change to q 6 hours tomorrow. Waiting for placement vs home health tomorrow. If he isnt accepted then will likely stay one more day. Nurse will call with questions or concerns. - Problems/Diagnosis (1) Cellulitis, toe Problem: Acute Qualifiers: Laterality: left Qualified Code(s): L03.032 - Cellulitis of left toe (2) Necrosis of toe Problem: Acute (3) Uncontrolled diabetes mellitus Problem: Acute
[2020-10-03] MEDS: HYDROcodone/ACETAMINOPHEN 1 EACH TABLET PO SCH ×6 (01:12→22:42)
[2020-10-03] MEDS: GABAPENTIN 100 MG CAPSULE PO SCH ×3 (04:01→19:54)
[2020-10-03] MEDS: glipiZIDE 5 MG TABLET PO SCH (06:41)
[2020-10-03] MEDS: INSULIN LISPRO 100 UNITS/ML VIAL SC SCH ×4 (06:42→20:40)
[2020-10-03] MEDS: PIPERACILLIN SODIUM/TAZOBACTAM 3.375 GM in DEXTROSE 5 % IN WATER 100 ML IV SCH ×2 (08:54)
[2020-10-03 09:12] LABS: Albumin * 2.8 gm/dl (3.4-5.0); Anion Gap 14.7 mmol/L (6.8-13.8); BUN/Creatinine Ratio 9.8 (9.0-21.6); Bilirubin, Total 0.4 mg/dL (0.0-1.1); Ca. Corrected For Albumin 9.5 mg/dL (8.4-10.2); Calcium * 8.9 mg/dL (7.9-10.9); Carbon Dioxide 27.7 mmol/L (24-32.6); Potassium 4.4 mmol/L (3.4-4.6); Total Protein 7.1 gm/dL (6.2-8.2)
[2020-10-03] MEDS: metFORMIN HCL 500 MG TABLET PO SCH ×2 (09:44→17:46)
[2020-10-03] MEDS: SULFAMETHOXAZOLE/TRIMETHOPRIM 1 TAB TABLET PO SCH ×2 (09:45→20:41)
[2020-10-03] MEDS: INSULIN GLARGINE,HUM.REC.ANLOG 100 UNITS/ML VIAL SC SCH (14:33)
--- NOTE | 2020-10-03 15:05 | PN ---
Subjective - Date and Time Seen Date: 10/03/20 Time: 12:50 Subjective Narrative: Marcos is little agitated this afternoon, sit in his chair. Patient is stable from a medical standpoint and he appears to be healing well. We discontinued his IV antibiotics and started on Bactrim for an additional 3 days or so. Patient's vitals look good. Patient frustrated about his discharge planning which we recommend him go to a shelter facility for a couple weeks for additional healing and better management of his blood sugars. He is frustrated that he will get to be with his dog but agrees to do this. I will feel much more comfortable discharging him on insulin while at a care facility at least for a couple weeks while he continues to heal then given it to him with him going home and managing his medications himself. He has been cleared from an orthopedic standpoint for discharge with follow-up instructions. Objective - Review of Systems Generalized/Overall Review: Denies: Weakness, Chills, Fever EENTM: Reports: No Symptoms Reported Respiratory: Reports: No Symptoms Reported Cardiac: Reports: No Symptoms Reported Abdominal: Denies: Nausea, Abdominal Pain, Constipation Genitourinary Symptoms: Reports: No Symptoms Reported Musculoskeletal Complaints: Reports: Other - Left foot pain, minimal Neurological: Reports: No Symptoms Reported Skin: Reports: No Symptoms Reported, Other - Vitals Vitals: Last Vital Signs Temp 36.3 C 10/03/20 11:15 Pulse 79 10/03/20 11:15 Resp 16 10/03/20 11:15 BP 113/56 10/03/20 11:15 Pulse Ox 96 10/03/20 11:15 - Abnormal Lab Findings Abnormal Lab Findings: Abnormal Lab Results 10/03/20 Range/Units 08:45 Anion Gap 14.7 H (6.8-13.8) mmol/L Random Glucose 141 H (70-110) mg/dL Albumin 2.8 L (3.4-5.0) gm/dl - Exam Constitutional: Present: Alert, Oriented x3, Cooperative, Elderly ENT Exam: Present: hearing grossly normal Respiratory: Present: lungs clear, normal breath sounds Cardiovascular/Chest: Present: regular rate, rhythm, no murmur Abdomen: Present: soft, nontender, nondistended Extremity: Present: other - Dressing clean dry intact. Absent: lower extremity edema Skin Exam: Present: normal color, warm/dry Neurologic: Present: alert, oriented x 3, depressed affect Appearance: Present: appropriate appearance, appropriate insight, disheveled Eye contact: Present: cooperative, good eye contact Thoughts: Present: normal thought pattern, normal mood /affect Assessment/Plan Plan Narrative: Patient continues to do well from a medical standpoint. Blood sugars are improving and now that he has agreed to go to a shelter facility at least for a short time, will start him on long-acting insulin as well. Patient also on Metformin and glipizide. Kidney function appropriate and tolerating it well. We will continue oral medications as he will likely only be on insulin for short time due to noncompliance and inability to manage his insulin alone after leaving the shelter facility. Patient on Bactrim, will be on for a total of 3 days. Pain is well controlled on oral pain medicine. No issues with his bowels. Patient worked with therapy and able to ambulate with a postop shoe and walker. Plan is for patient to be discharged on Tuesday to [facility] for continued therapy and management of his diabetes. Continue current treatment plan, nurse to call questions or concerns. - Problems/Diagnosis (1) Cellulitis, toe Problem: Acute Qualifiers: Laterality: left Qualified Code(s): L03.032 - Cellulitis of left toe (2) Necrosis of toe Problem: Acute (3) Uncontrolled diabetes mellitus Problem: Acute
[2020-10-03] MEDS: SENNOSIDES/DOCUSATE SODIUM 1 TAB TABLET PO SCH (20:41)
[2020-10-04] MEDS: HYDROcodone/ACETAMINOPHEN 1 EACH TABLET PO SCH ×3 (03:00→09:40)
[2020-10-04] MEDS: glipiZIDE 5 MG TABLET PO SCH (06:55)
[2020-10-04] MEDS: GABAPENTIN 100 MG CAPSULE PO SCH ×3 (06:55→19:48)
[2020-10-04] MEDS: INSULIN LISPRO 100 UNITS/ML VIAL SC SCH ×4 (06:59→21:23)
[2020-10-04] MEDS: SULFAMETHOXAZOLE/TRIMETHOPRIM 1 TAB TABLET PO SCH ×2 (09:41→21:19)
[2020-10-04] MEDS: INSULIN GLARGINE,HUM.REC.ANLOG 100 UNITS/ML VIAL SC SCH (09:41)
[2020-10-04] MEDS: metFORMIN HCL 500 MG TABLET PO SCH ×2 (09:41→17:36)
--- NOTE | 2020-10-04 10:28 | PN ---
Subjective - Date and Time Seen Date: 10/04/20 Subjective Narrative: Patient is reporting uncontrolled pain and is asking for this to be resolved. No other new concerns. Objective - Review of Systems Generalized/Overall Review: Denies: Fever Respiratory: Denies: Shortness of Breath Abdominal: Denies: Diarrhea Genitourinary Symptoms: Reports: No Symptoms Reported Musculoskeletal Complaints: Reports: Other - left foot pain - Vitals Vitals: Last Vital Signs Temp 36.9 C 10/04/20 06:42 Pulse 81 10/04/20 06:42 Resp 18 10/04/20 06:42 BP 123/61 10/04/20 06:42 Pulse Ox 98 10/04/20 06:42 - Exam Constitutional: Present: Alert, Cooperative, Elderly Respiratory: Present: normal breath sounds, no respiratory distress Cardiovascular/Chest: Present: regular rate, rhythm Abdomen: Present: soft, nontender Extremity: Present: other - left foot wrapped in JEWELS wrap. no erythema or edema of lower leg proximal to bandage Eye contact: Present: good eye contact Assessment/Plan Plan Narrative: Today is day #8 of hospitalization and POD #4 of left great toe amputation at the metatarsophalangeal joint for necrosis. Pain has not been controlled. He was using hydrocodone/acetaminophin q4h. We do not have 10/325 mg hydrocodone here. To increase the narcotic, I will have to change to oxycodone 10 mg q4h prn. He has no new concerns otherwise. He has agreed to SNF placement to promote healing after DC. Today is Tuesday, so DC will not happen until Tuesday. His diabetes is under better control, with glucose mostly in the 100's in the last 24 hours. continue glipizide, 20 U lantus, and SSI, of which he's used 15 U since yesterday morning. - Problems/Diagnosis (1) Necrosis of toe Problem: Acute (2) Status post amputation of toe of left foot Problem: Acute (3) Diabetes Problem: Chronic
[2020-10-04] MEDS: oxyCODONE HCL 5 MG TABLET PO PRN ×2 (13:15→19:49)
[2020-10-04] MEDS ORDERED: HYDROcodone/ACETAMINOPHEN 1 EACH TABLET PO SCH (13:40)
[2020-10-04] MEDS: ACETAMINOPHEN 500 MG TABLET PO PRN (21:19)
[2020-10-04] MEDS: SENNOSIDES/DOCUSATE SODIUM 1 TAB TABLET PO SCH (21:20)
[2020-10-05] MEDS: oxyCODONE HCL 5 MG TABLET PO PRN ×5 (00:26→21:14)
[2020-10-05] MEDS: ACETAMINOPHEN 500 MG TABLET PO PRN ×2 (03:36→23:34)
[2020-10-05] MEDS: GABAPENTIN 100 MG CAPSULE PO SCH ×3 (03:56→21:13)
[2020-10-05] MEDS: INSULIN LISPRO 100 UNITS/ML VIAL SC SCH ×5 (07:07→21:18)
[2020-10-05] MEDS: glipiZIDE 5 MG TABLET PO SCH (07:11)
--- NOTE | 2020-10-05 08:08 | PN ---
Subjective - Date and Time Seen Date: 10/05/20 Subjective Narrative: Pain meds increased yesterday, and he is more comfortable. Did not sleep well last night. Objective - Review of Systems Generalized/Overall Review: Denies: Fever Respiratory: Denies: Shortness of Breath Abdominal: Reports: No Symptoms Reported Genitourinary Symptoms: Reports: No Symptoms Reported Musculoskeletal Complaints: Reports: Other - left foot pain - Vitals Vitals: Last Vital Signs Temp 36.4 C 10/05/20 06:31 Pulse 78 10/05/20 06:31 Resp 20 10/05/20 06:31 BP 131/70 10/05/20 06:31 Pulse Ox 96 10/05/20 06:31 - Exam Constitutional: Present: Alert, Cooperative, No distress Respiratory: Present: normal breath sounds, no respiratory distress Cardiovascular/Chest: Present: regular rate, rhythm Abdomen: Present: soft Extremity: Present: other - left foot jesu wrapped. no erythema or edema proximal to the bandage. Absent: lower extremity edema Neurologic: Present: normal mood/affect Assessment/Plan Plan Narrative: Today is day #9 of hospitalization and POD #5 of left great toe amputation at the metatarsophalangeal joint for necrosis. Pain med increased from norco 5 mg to oxycodone 10 mg yesterday for uncontrolled pain, and he seems more comfortable. He will be going to [place] tomorrow for rehab prior to going home. He is on bactrim currently, to complete the course tomorrow. Glucose has been in the 100's. - Problems/Diagnosis (1) Necrosis of toe Problem: Acute (2) Status post amputation of toe of left foot Problem: Acute (3) Diabetes Problem: Chronic
[2020-10-05] MEDS: INSULIN GLARGINE,HUM.REC.ANLOG 100 UNITS/ML VIAL SC SCH (09:34)
[2020-10-05] MEDS: SULFAMETHOXAZOLE/TRIMETHOPRIM 1 TAB TABLET PO SCH ×2 (09:34→21:13)
[2020-10-05] MEDS: metFORMIN HCL 500 MG TABLET PO SCH ×2 (09:34→17:36)
[2020-10-05] MEDS: SENNOSIDES/DOCUSATE SODIUM 1 TAB TABLET PO SCH (21:14)
[2020-10-06] MEDS: oxyCODONE HCL 5 MG TABLET PO PRN ×3 (04:30→14:09)
[2020-10-06] MEDS: GABAPENTIN 100 MG CAPSULE PO SCH ×2 (04:31→12:02)
[2020-10-06] MEDS: ACETAMINOPHEN 500 MG TABLET PO PRN (05:46)
[2020-10-06] MEDS: INSULIN LISPRO 100 UNITS/ML VIAL SC SCH ×2 (07:29→12:01)
[2020-10-06] MEDS: glipiZIDE 5 MG TABLET PO SCH (07:29)
[2020-10-06] MEDS: SULFAMETHOXAZOLE/TRIMETHOPRIM 1 TAB TABLET PO SCH (08:31)
[2020-10-06] MEDS: metFORMIN HCL 500 MG TABLET PO SCH (08:31)
[2020-10-06] MEDS: INSULIN GLARGINE,HUM.REC.ANLOG 100 UNITS/ML VIAL SC SCH (08:32)
--- NOTE | 2020-10-06 10:41 | PN ---
Subjective - Date and Time Seen Date: 10/06/20 Time: 10:40 Subjective Narrative: Subjective: Pain is stable. Voiding without any complications. Tolerating by mouth intake. Denies any nausea or vomiting. Physical exam: Alert and oriented to person, place and time Left lower extremity: Palpable dorsalis pedis pulse. Dressings dry and intact. Mild tenderness about the foot Assessment: Postop day 6 status post left great toe amputation. Plan: He can walk on his heel in a postop shoe. Keep the dressings on and intact and dry. I will see him back in approximately the end of this week. He needs to control his blood sugars in order to assist with healing. He can be discharged at any point from an orthopedic standpoint. Objective - Vitals Vitals: Last Vital Signs Temp 36 C 10/06/20 06:26 Pulse 73 10/06/20 06:26 Resp 16 10/06/20 06:26 BP 104/59 10/06/20 06:26 Pulse Ox 95 10/06/20 06:26 Assessment/Plan - Problems/Diagnosis (1) Cellulitis, toe Problem: Acute Qualifiers: Laterality: left Qualified Code(s): L03.032 - Cellulitis of left toe (2) Necrosis of toe Problem: Acute
--- NOTE | 2020-10-06 13:21 | DS ---
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 Patient underwent procedure with left toe amputation which he tolerated well. Patient's pain not initially controlled well with 5 mg oxycodone every 6 4 hours, it was increased to 10 mg which she did much better on. Other factor involved in this was he had A1c greater than 13 and was not on any diabetic medication. He required fairly aggressive sliding scale insulin and then once we found out he was going to a SNF for short time he was started on long-acting insulin as well. Since then his sugars have been much better controlled and he is doing very well with this. He will be discharged home for as long as he is in a SNF facility on long-acting insulin and will continue his Metformin and glipizide was restarted. Otherwise his vital signs been stable and his lab work has been unremarkable. He has done well while being here and should continue to heal. His dressing has been clean and dry and intact while here. He has an appointment to follow with orthopedics in 1 week. He can follow-up with me once he is discharged from the SNF. Will likely only continue his oral diabetic medications once he is discharged from SNF. Of note patient has also been on vancomycin and Zosyn for cellulitis and osteomyelitis, today's last day of his Bactrim so he will not need antibiotics when he is discharged. Patient will need to wear postop boot until he follows up with orthopedics in 1 week. 1 hour spent seeing patient, putting orders in, setting follow-ups, and dictating this note. Procedures Performed: none Results and Findings: Lab Pending Results 09/27/20 18:25: Mean Blood Glucose 344, Hemoglobin A1c 13.6 H 09/27/20 18:25: ESR 97 H 09/27/20 18:26: WBC 8.9, RBC 4.64 L, Hgb 13.5, Hct 42.1, MCV 90.7, MCH 29.1, MCHC 32.1, RDW 13.1, Plt Count 231, MPV 9.2, Immature Gran % (Auto) 0.60 H, Immature Gran # (Auto) 0.05 H, Neutrophils % 70.2, Lymphocytes % 18.9 L, Monocytes % 9.1 H, Eosinophils % 0.9, Basophils % 0.3, Nucleated RBC % 0.0, Neutrophils # 6.2 H, Lymphocytes # 1.68, Monocytes # 0.8, Eosinophils # 0.1, Absolute Basophils 0.0 09/27/20 18:26: Sodium 132, Plasma Sodium 137, Potassium 4.0, Chloride 97, Carbon Dioxide 25.1, Anion Gap 13.9 H, BUN 18, Creatinine 1.38, Est GFR (Non-Af Amer) 53 L, BUN/Creatinine Ratio 13.0, Random Glucose 411 H, Calcium 8.4, C- Reactive Prot, Quant 17.8 H 09/27/20 18:26: Lactic Acid, Venous 1.8 09/27/20 19:40: SARS-CoV-2 (PCR) Not detected 09/28/20 07:22: WBC 7.8, RBC 4.47 L, Hgb 13.0 L, Hct 40.7 L, MCV 91.1, MCH 29.1, MCHC 31.9 L, RDW 13.1, Plt Count 207, MPV 8.8, Immature Gran % (Auto) 0.40, Immature Gran # (Auto) 0.03, Neutrophils % 64.2, Lymphocytes % 23.1, Monocytes % 10.4 H, Eosinophils % 1.5, Basophils % 0.4, Nucleated RBC % 0.0, Neutrophils # 5.0, Lymphocytes # 1.81, Monocytes # 0.8, Eosinophils # 0.1, Absolute Basophils 0.0 09/28/20 07:22: Sodium 138, Plasma Sodium 139, Potassium 4.4, Chloride 101, Carbon Dioxide 28.0, Anion Gap 13.4, BUN 15, Creatinine 1.06, Est GFR (Non-Af Amer) 71 D, BUN/Creatinine Ratio 14.2, Random Glucose 135 H D, Calcium 8.3, Calcium Adj for Albumin 8.9, Total Bilirubin 0.5, AST 31, ALT 41, Alkaline Phosphatase 91, Total Protein 6.5, Albumin 2.8 L 09/30/20 13:50: Pathology Specimen Spec to path 10/01/20 06:43: WBC 7.4, RBC 4.42 L, Hgb 12.7 L, Hct 40.2 L, MCV 91.0, MCH 28.7, MCHC 31.6 L, RDW 13.0, Plt Count 209, MPV 8.4, Immature Gran % (Auto) 0.40, Immature Gran # (Auto) 0.03, Neutrophils % 65.7, Lymphocytes % 21.2, Monocytes % 9.6 H, Eosinophils % 2.6, Basophils % 0.5, Nucleated RBC % 0.0, Neutrophils # 4.8, Lymphocytes # 1.56, Monocytes # 0.7, Eosinophils # 0.2, Absolute Basophils 0.0 10/01/20 06:43: Sodium 137, Plasma Sodium 138, Potassium 4.7 H, Chloride 101, Carbon Dioxide 29.0, Anion Gap 11.7, BUN 10, Creatinine 1.12, Est GFR (Non-Af Amer) 67, BUN/Creatinine Ratio 8.9 L, Random Glucose 180 H D, Calcium 8.7 10/03/20 08:45: Sodium 139, Plasma Sodium 140, Potassium 4.4, Chloride 101, Carbon Dioxide 27.7, Anion Gap 14.7 H, BUN 10, Creatinine 1.02, Est GFR (Non-Af Amer) 75, BUN/Creatinine Ratio 9.8, Random Glucose 141 H, Calcium 8.9, Calcium Adj for Albumin 9.5, Total Bilirubin 0.4, AST 38, ALT 26, Alkaline Phosphatase 80, Total Protein 7.1, Albumin 2.8 L Discharge Location: [facility] [place] Disposition: swing bed (SNF) Condition: Fair Level of Care: SNF Discharge Activity: Activity as tolerated Discharge Diet: Consistent carbs Referrals: iJm Vaughn DO [Staff Physician] - Two Weeks Additional Patient Instructions (free text): [facility] SNF- PT, OT to evaluate and treat. Fax discharge summary, instructions, and orders and call report. Follow up with Orthopedics with Jorje Dhillon TuesdayOctober 08 at 10:30 a.m. Prescriptions (Any new or edited meds): metFORMIN HCL [Glucophage] 1,000 mg PO BIDWM #120 tab Transmission Status: Pending to [facility] glipiZIDE [Glucotrol] 5 mg PO DAILY@0700 #30 tab Transmission Status: Pending to [facility] Insulin Glargine,Hum.rec.anlog [Lantus] 20 units SC DAILY #3 vial Transmission Status: Pending to [facility] oxyCODONE HCL [Oxycodone] 10 mg PO Q4H PRN #40 tab PRN Reason: Pain Transmission Status: Sent to [facility] Sennosides/Docusate Sodium [Senokot-S] 2 tab PO HS #60 tab Transmission Status: Pending to [facility] Complete Home Medications List: Complete Home Medication List: Insulin Glargine,Hum.rec.anlog [Lantus] 20 units SC DAILY #3 vial 10/06/20 Sennosides/Docusate Sodium [Senokot-S] 2 tab PO HS #60 tab 10/06/20 glipiZIDE [Glucotrol] 5 mg PO DAILY@0700 #30 tab 10/06/20 metFORMIN HCL [Glucophage] 1,000 mg PO BIDWM #120 tab 10/06/20 oxyCODONE HCL [Oxycodone] 10 mg PO Q4H PRN #40 tab 10/06/20 Forms: Patient Portal Registration
[2020-10-06 14:13] VITALS: BP 100/62
== END 2020-10-06 14:13 | DRG 617 ==
LOC: ER 17:11 → MS 17:11 → OBSVTOIN 20:45 → MS 21:10
PROVIDERS: ADMIT Family Medicine; ATTEND Family Medicine
DX: E11.69 Type 2 diabetes mellitus with other specified complication; L97.524 Non-pressure chronic ulcer of other part of left foot with necrosis of bone; E11.65 Type 2 diabetes mellitus with hyperglycemia; M86.9 Osteomyelitis, unspecified; L03.032 Cellulitis of left toe; E11.621 Type 2 diabetes mellitus with foot ulcer